=== PATIENT | female | born 1980 | race Caucasian/White ===

== ENCOUNTER → 2022-02-07 | Outpatient (REF) ==
[~2022-02-07] MED LIST: ABIL400I IM; ARIP1TAB6 PO; CYCL-707 PO; FLUO-96 PO; FLUO10TA30 PO; LEVO125T4 PO; LEVO137T14 PO; OXYC1TAB23 PO; SERT-141 PO; SUMA50TA2 PO; TRAZ-252 PO; VENTAER INH; XANA0.5T PO
== END ==
LOC: M PLAIMG 14:59
PROVIDERS: ATTEND Internal Medicine
DX: M54.50 Low back pain, unspecified (principal)

== ENCOUNTER → 2024-04-07 | Outpatient (REF) | LOC: M PLAIMG 11:16 | PROVIDERS: ATTEND Internal Medicine | DX: M47.817 Spondylosis without myelopathy or radiculopathy, lumbosacral region (principal) ==